=== PATIENT | female | born 1970 | race Hispanic/Latino ===

== ENCOUNTER 2019-02-24 11:00 | Emergency (ER) | payer SELFPAY | END 2019-02-24 11:41 | disposition home or self-care (01) | LOC: ERS 11:00 | DX: J32.9 Chronic sinusitis, unspecified (principal); F32.9 Major depressive disorder, single episode, unspecified | CPT/HCPCS: 99283 ==

== ENCOUNTER 2019-12-03 15:10 | Emergency (ER) | payer SELFPAY ==
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
[2019-12-03] MEDS ORDERED: Ketorolac Tromethamine 30 MG/ML VIAL ONE (17:03)
== END 2019-12-03 18:04 | disposition home or self-care (01) ==
LOC: ERS 15:10
DX: S60.212A Contusion of left wrist, initial encounter (principal); S80.12XA Contusion of left lower leg, initial encounter; S80.11XA Contusion of right lower leg, initial encounter; E04.1 Nontoxic single thyroid nodule; F32.9 Major depressive disorder, single episode, unspecified; V89.2XXA Person injured in unspecified motor-vehicle accident, traffic, initial encounter
CPT/HCPCS: 70450; 72125; 72131; 96374; J1885

== ENCOUNTER 2020-08-05 08:18 | Inpatient (IN) | payer OTHER, SELFPAY ==
[2020-08-05 08:54] LABS: #Basophils 0.1 thou/uL (0.0-0.2); #Eosinphils 0.1 thou/uL (0.0-0.7); #Lymphocytes 2.3 thou/uL (1.20-3.40); #Neutrophils 13.8 thou/uL (1.40-6.50); %Basophils 0.5 % (0.0-1.0); %Eosinophils 0.8 % (0.0-10.0); %Lymphocytes 13.3 % (21.0-51.0); %Monocytes 5.7 % (0.0-10.0); %Neutrophils 79.8 % (42.0-75.0); Hemoglobin 14.6 g/dL (12.0-16.0); Mean Corpuscular HGB CONC 33.5 g/dL (32.0-36.0); Mean Corpuscular Volume 95.7 fL (78.0-98.0); Platelet Count 268 thou/uL (130-400); RBC Distribution Width 11.7 % (11.5-14.5); Red Blood Cell (RBC) Count 4.55 mill/uL (4.20-5.40); White Blood Cell (WBC) Count 17.2 thou/uL (4.8-10.8)
[2020-08-05] MEDS ORDERED: Ondansetron PF 4 MG/2 ML Vial ONE (08:59)
[2020-08-05] MEDS ORDERED: Morphine 4 MG/ML VIAL ONE ×2 (08:59→09:22)
[2020-08-05 09:00] LABS: Pregnancy Test - Urine (BHCG) Negative (Negative); Pregu Control Background? CLEAR/WHITE (CLR/WHITE); Pregu Control Bar Appear? YES (CONTROL BAR); Specific Gravity 1.022 (1.002-1.036)
--- NOTE | 2020-08-05 09:00 | RAD ---
CHEST 1 VIEW: Date: 08/05/2020 HISTORY: Cough. COMPARISON: 07/29/2016. FINDINGS: Heart size is normal. The lungs are clear. No confluent pneumonia, overt edema, or pleural effusion. IMPRESSION: No significant acute intrathoracic disease. POS: AH
[2020-08-05 09:04] LABS: Bilirubin Negative (Negative); Blood, Urine 2+ (Negative); Clarity Turbid (Clear); Glucose, Urine (Dipstick) Normal (Negative); Ketone, Urine Negative (Negative); Leukocyte Negative Leu/uL (Negative); Nitrite Negative (Negative); Protein, Urine (Dipstick) 50 mg/dL (Neg-Trace); RBC/HPF 21-50 HPF (0-3); Specific Gravity, Urine 1.024 (1.002-1.036); Urobilinogen Normal mg/dL (Less than 2)
[2020-08-05 09:05] LABS: Bacteria/HPF 1+ HPF (None Seen)
[2020-08-05 09:20] LABS: ALT (SGPT) 21 U/L (8-55); AST (SGOT) 15 U/L (5-34); Alkaline Phosphatase 99 U/L (40-110); Anion Gap 14 mmol/L (10-20); BUN (Urea Nitrogen) 9 mg/dL (7.0-18.7); Bilirubin, Total 1.4 mg/dL (0.2-1.2); Calc. Creatinine Clearance 0 mL/min (70-130); Carbon Dioxide 27 mmol/L (22-29); Chloride 100 mmol/L (98-107); Globulin 3.3 g/dL (2.4-3.5); Glucose 97 mg/dL (70-105); Lipase 5 U/L (8-78); Potassium 3.2 mmol/L (3.5-5.1); Protein, Total 7.3 g/dL (6.0-8.3); Sodium 138 mmol/L (136-145)
[2020-08-05] MEDS ORDERED: Piperacillin/Tazobactam 3.375 GM VIAL ONE (09:22)
--- NOTE | 2020-08-05 09:29 | CT ---
CT OF THE ABDOMEN AND PELVIS WITH IV CONTRAST INDICATION: Left lower quadrant abdominal pain COMPARISON: MRI of the abdomen with and without contrast dated March 23, 2009 and August 26, 2009 FINDINGS: ABDOMEN: Lung bases: Clear Liver: There is a peripheral nodular discontinuous enhancing lesion within the right hepatic dome maria l suring 3.5 cm stable to the prior MR examination in 2010 and likely reflective of a benign hemangioma. Additional enhancing lesion within the central right hepatic lobe is not well seen. Gallbladder: Normal appearing. Pancreas: Normal. Adrenal glands: Normal. Spleen: Normal. Kidneys and ureters: Normal. No hydronephrosis. Vasculature: Normal. Lymph nodes:No lymphadenopathy. Free fluid in abdomen:There is mild fluid within the left paracolonic gutter. PELVIS: Small and large bowel: There is wall thickening with pericolonic inflammatory stranding involving the descending colon. There are scattered colonic diverticula. Appendix:Normal Bladder: Normal. Rectal and perirectal soft tissues:Normal. Reproductive structures: Normal. Free fluid in pelvis: No free fluid is evident. Lymphadenopathy pelvis: No lymphadenopathy is evident. Osseous structures: No acute osseous abnormality. No destructive osteolytic or osteoblastic lesion i s identified. There is scattered degenerative and osteoarthritic changes. Soft tissues:Normal. IMPRESSION: 1. Noncomplicated descending colonic diverticulitis. 2. Benign lesion of the right hepatic dome is stable in size. This is likely reflective of a hemangio ma. Additional smaller suspected benign lesion the central right hepatic lobe is not well seen on the current phase of contrast enhancement. This was also suspect is been benign.
--- NOTE | 2020-08-05 12:01 | HP ---
CHIEF COMPLAINT: Abdominal pain. HISTORY OF PRESENT ILLNESS: The patient is a 49-year-old female with no significant past medical history other than a heart murmur, who presented to the hospital with severe left lower quadrant abdominal pain that started last night and has been persistent since then. The patient complains of some nausea and constipation, but denies vomiting. She also endorsed subjective fevers and chills. REVIEW OF SYSTEMS: Negative except as noted in HPI. PAST MEDICAL HISTORY: As noted above. SURGICAL HISTORY: Includes tubal ligation and fallopian tube removal on the left side. SOCIAL HISTORY: The patient drinks alcohol socially. She denies smoking or illicit drug use. FAMILY HISTORY: No significant family history. PHYSICAL EXAMINATION: GENERAL: The patient is alert and oriented x3. HEENT: Head is normocephalic and atraumatic. Extraocular muscles are intact. NECK: Supple. CHEST: Clear to auscultation bilaterally. ABDOMEN: Soft and tender in the lower left quadrant. NEUROLOGIC: Nonfocal. ASSESSMENT: 1. Sepsis. 2. Diverticulitis of the left side of the colon per CT. 3. Hypokalemia. 4. Abdominal pain. PLAN: The patient will be admitted to the hospital. Start IV normal saline at 150 mL/h. Start Zosyn to cover for Gram-negative and anaerobes. Morphine for pain control. Clear liquid diet. Job ID: [id number] [facility]
[2020-08-05] MEDS ORDERED: Iopamidol-370 76% 500 ML 1 ML ONE (13:07)
[2020-08-05] MEDS: Piperacillin/Tazobactam 3.375 GM in Sodium Chloride 0.9% 100 ML IVPB SCH ×2 (13:20→17:01)
[2020-08-05 13:35] VITALS: BMI 32.9
[2020-08-05] MEDS: Sodium Chloride 0.9% 1,000 ML IV SCH ×2 (14:14→19:21)
[2020-08-05] MEDS: HYDROcodone/Acetaminophen 7.5/325 mg Tablet PO PRN ×2 (15:58→21:23)
[2020-08-05] MEDS: Morphine 4 MG/ML VIAL SLOW IVP PRN (19:20)
[2020-08-05] MEDS: Melatonin 3 MG TAB PO SCH (20:37)
[2020-08-06] MEDS: Piperacillin/Tazobactam 3.375 GM in Sodium Chloride 0.9% 100 ML IVPB SCH ×5 (00:13→23:17)
[2020-08-06] MEDS: Morphine 4 MG/ML VIAL SLOW IVP PRN (00:19)
[2020-08-06] MEDS: Sodium Chloride 0.9% 1,000 ML IV SCH ×4 (02:18→21:11)
[2020-08-06] MEDS: Ondansetron PF 4 MG/2 ML Vial IVP PRN ×2 (02:38→22:41)
[2020-08-06] MEDS: HYDROcodone/Acetaminophen 7.5/325 mg Tablet PO PRN ×2 (02:41→07:49)
[2020-08-06 03:02] LABS: SARS-CoV-2 MS2 Positive; SARS-CoV-2 N Gene Negative; SARS-CoV-2 S Gene Negative; SARS-CoV-2 by NAA Not Detected (NotDetected); SARS-CoV-2 orf1ab Negative
[2020-08-06 06:02] LABS: #Basophils 0.1 thou/uL (0.0-0.2); #Eosinphils 0.1 thou/uL (0.0-0.7); #Lymphocytes 2.4 thou/uL (1.20-3.40); #Monocytes 0.9 thou/uL (0.11-0.59); #Neutrophils 13.2 thou/uL (1.40-6.50); %Basophils 0.4 % (0.0-1.0); %Eosinophils 0.4 % (0.0-10.0); %Lymphocytes 14.3 % (21.0-51.0); %Monocytes 5.2 % (0.0-10.0); %Neutrophils 79.7 % (42.0-75.0); Hemoglobin 11.7 g/dL (12.0-16.0); Mean Corpuscular HGB CONC 32.5 g/dL (32.0-36.0); Mean Corpuscular Hemoglobin 31.7 pg (27.0-31.0); Mean Corpuscular Volume 97.5 fL (78.0-98.0); Platelet Count 227 thou/uL (130-400); RBC Distribution Width 11.7 % (11.5-14.5); White Blood Cell (WBC) Count 16.6 thou/uL (4.8-10.8)
[2020-08-06 06:21] LABS: Anion Gap 12 mmol/L (10-20); BUN (Urea Nitrogen) 6 mg/dL (7.0-18.7); Calc. Creatinine Clearance 143 mL/min (70-130); Calcium 7.7 mg/dL (7.8-10.44); Carbon Dioxide 23 mmol/L (22-29); Chloride 101 mmol/L (98-107); Glucose 112 mg/dL (70-105); Potassium 3.6 mmol/L (3.5-5.1); Sodium 132 mmol/L (136-145)
[2020-08-06 06:24] LABS: Phosphorus 1.9 mg/dL (2.3-4.7)
[2020-08-06] MEDS ORDERED: Meclizine HCl 25 MG TAB PO SCH ×2 (06:30)
[2020-08-06] MEDS: Enoxaparin Sodium 40 MG/0.4 ML SYRINGE SC SCH (07:47)
[2020-08-06] MEDS: Saccharomyces boulardii 250 MG CAP PO SCH (07:48)
[2020-08-06] MEDS: Acetaminophen 325 MG TAB PO PRN ×2 (08:57→17:08)
[2020-08-06] MEDS ORDERED: FLU VACC QS2020-21(6MOS UP)/PF 60 MCG/0.5 ML SYRINGE IM ONE (09:00)
[2020-08-06] MEDS: traMADol HCl 50 MG TAB PO PRN ×4 (10:01→22:40)
[2020-08-06] MEDS: K-Phos Neutral 250 MG TAB PO SCH ×2 (11:41→17:08)
[2020-08-06] MEDS: Morphine 2 MG/ML VIAL SLOW IVP PRN ×3 (11:41→19:55)
--- NOTE | 2020-08-06 19:18 | PDOC.HOSPP ---
- Subjective Encounter Date: 08/06/20 Encounter Time: 14:00 Subjective: Patient seen and examined for diverticulitis. Abdominal pain improving. Had some nausea earlier. No vomiting or fever reported. - Objective Vital Signs & Weight: Vital Signs (12 hours) Temp Pulse Resp BP Pulse Ox 08/06/20 17:08 99.1 F 08/06/20 07:50 98 08/06/20 07:43 98.3 F 74 18 94/65 98 Weight Weight 180 lb I&O: 08/05/20 08/06/20 08/07/20 06:59 06:59 06:59 Intake Total 960 Balance 960 Result Diagrams: 08/06/20 05:50 08/06/20 05:50 Additional Labs: Abnormal Lab Results - Last 48 hrs 08/05/20 08:28: Potassium 3.2 L, Total Bilirubin 1.4 H, Lipase 5 L 08/05/20 08:28: WBC 17.2 H, MCH 32.0 H, MPV 7.0 L, Neutrophils % 79.8 H, Ly mphocytes % 13.3 L, Neutrophils # 13.8 H, Monocytes # 1.0 H 08/05/20 08:28: Urine Clarity Turbid A, Urine Protein 50 A, Urine Blood 2+ A, Urine RBC 21-50 A, Urine WBC 4-6 A, Ur Squamous Epith Cells 4-6 A, Urine Bacteria 1+ A 08/06/20 05:50: Sodium 132 L, BUN 6 L, Calcium 7.7 L 08/06/20 05:50: WBC 16.6 H, RBC 3.70 L, Hgb 11.7 L, MCH 31.7 H, MPV 7.0 L, Neutrophils % 79.7 H, Lymphocytes % 14.3 L, Neutrophils # 13.2 H, Monocytes # 0.9 H 08/06/20 05:50: Phosphorus 1.9 L Microbiology - Entire Visit 08/05/20 09:10 Venous blood - Right Arm Blood Culture - Preliminary Specimen has been received and culture in progress. No Growth to date. 08/05/20 08:40 Venous blood - Right Arm Blood Culture - Preliminary Specimen has been received and culture in progress. No Growth to date. 08/05/20 08:28 Urine voided Urine Culture - Preliminary Radiology Reviewed by me: Yes (CT abdomenacute diverticulitis) Hospitalist ROS - Review of Systems Respiratory: denies: cough, dry, shortness of breath, hemoptysis, SOB with excertion, pleuritic pain, sputum, wheezing, other Cardiovascular: denies: chest pain, palpitations, orthopnea, paroxysmal noc. dyspnea, edema, light headedness, other - Medication Medications: Active Medications Generic Name Dose Route Start Last Admin Trade Name Freq PRN Reason Stop Dose Admin Acetaminophen 650 mg 08/05/20 16:57 08/06/20 17:08 Acetaminophen 325 Mg Tab PO 650 mg Q6H PRN Administration Fever > 101 Enoxaparin Sodium 40 mg 08/06/20 09:00 08/06/20 07:47 Enoxaparin Sodium 40 Mg/0.4 Ml Syringe SC 40 mg 0900 ROSAURA Administration Piperacillin Sod/Tazobactam 100 mls @ 200 mls/hr 08/05/20 12:00 08/06/20 17:03 Sod 3.375 gm/ Sodium Chloride IVPB 100 mls Q6HR ROSAURA Administration Sodium Chloride 1,000 mls @ 150 mls/hr 08/05/20 11:45 08/06/20 14:27 Normal Saline 0.9% IV 1,000 mls .Q6H40M ROSAURA Administration Melatonin 6 mg 08/05/20 21:00 08/05/20 20:37 Melatonin 3 Mg Tab PO 6 mg HS ROSAURA Administration Morphine Sulfate 4 mg 08/05/20 11:27 08/06/20 00:19 Morphine 4 Mg/Ml Vial SLOW IVP 4 mg Q4H PRN Administration Severe Pain (7-10) Morphine Sulfate 2 mg 08/06/20 09:47 08/06/20 15:24 Morphine 2 Mg/Ml Vial SLOW IVP 08/07/20 09:48 2 mg Q4H PRN Administration Moderate Pain (4-6) Ondansetron HCl 4 mg 08/05/20 11:26 08/06/20 02:38 Ondansetron Pf 4 Mg/2 Ml Vial IVP 4 mg Q6H PRN Administration Nausea/Vomiting Phosphorus 250 mg 08/06/20 12:00 08/06/20 17:08 K-Phos Neutral 250 Mg Tab PO 250 mg TID-WM ROSAURA Administration Saccharomyces Boulardii 250 mg 08/06/20 09:00 12/25/20 07:48 Saccharomyces Boulardii 250 Mg Cap PO 250 mg DAILY ROSAURA Administration Sodium Chloride 10 ml 08/06/20 09:00 08/06/20 07:47 Flush - Normal Saline 10 Ml Syringe IVF Not Given Q12HR ROSAURA Tramadol HCl 50 mg 08/06/20 09:47 08/06/20 18:42 Tramadol Hcl 50 Mg Tab PO 50 mg Q4H PRN Administration Moderate Pain (4-6) - Exam General Appearance: ill appearing Neck: supple, symmetric, no JVD Heart: RRR, no gallops, no rubs, normal peripheral pulses Respiratory: no wheezes, no rales, no ronchi, normal chest expansion Gastrointestinal: soft, non-distended, no guarding, no rigidity, tender to palpation (Left lower quadrant) Extremities: no cyanosis, no clubbing, no edema Musculoskeletal: generalized weakness Psychiatric: normal affect, A&O x 3 Hosp A/P - Plan DVT proph w/SCDs Sepsis due to acute diverticulitisPOA Abdominal pain due to above Obesity with a BMI 32.9 Hyponatremia/hypokalemia/hypophosphatemia Abnormal LFTs probably due to sepsis Plan: Continue IV Zosyn. Continue IV fluids. Replace electrolytes. Add probiotics. Pain control. Recheck LFTs in a.m. walking program. Continue other medications as above. DC in 1 to 2 days if stable. Consult dietitian for dietary education
[2020-08-06] MEDS: Melatonin 3 MG TAB PO SCH (21:09)
[2020-08-07] MEDS: Morphine 4 MG/ML VIAL SLOW IVP PRN ×4 (01:16→19:27)
[2020-08-07] MEDS: traMADol HCl 50 MG TAB PO PRN ×5 (03:40→21:37)
[2020-08-07] MEDS: Sodium Chloride 0.9% 1,000 ML IV SCH ×3 (03:41→16:46)
[2020-08-07] MEDS: Morphine 2 MG/ML VIAL SLOW IVP PRN (05:42)
[2020-08-07] MEDS: Piperacillin/Tazobactam 3.375 GM in Sodium Chloride 0.9% 100 ML IVPB SCH ×3 (05:43→16:46)
[2020-08-07 07:30] LABS: #Basophils 0.1 thou/uL (0.0-0.2); #Eosinphils 0.2 thou/uL (0.0-0.7); #Lymphocytes 2.5 thou/uL (1.20-3.40); #Monocytes 0.5 thou/uL (0.11-0.59); #Neutrophils 6.9 thou/uL (1.40-6.50); %Basophils 0.7 % (0.0-1.0); %Eosinophils 1.9 % (0.0-10.0); %Lymphocytes 24.4 % (21.0-51.0); %Monocytes 5.3 % (0.0-10.0); %Neutrophils 67.8 % (42.0-75.0); Mean Corpuscular HGB CONC 33.1 g/dL (32.0-36.0); Mean Corpuscular Hemoglobin 32.5 pg (27.0-31.0); Mean Corpuscular Volume 98.1 fL (78.0-98.0); Mean Platelet Volume 8.1 fL (7.4-10.4); Platelet Count 220 thou/uL (130-400); RBC Distribution Width 11.5 % (11.5-14.5); White Blood Cell (WBC) Count 10.1 thou/uL (4.8-10.8)
[2020-08-07 07:31] LABS: ALT (SGPT) 20 U/L (8-55); AST (SGOT) 17 U/L (5-34); Albumin 3.1 g/dL (3.5-5.0); Alkaline Phosphatase 89 U/L (40-110); Anion Gap 12 mmol/L (10-20); BUN (Urea Nitrogen) 6 mg/dL (7.0-18.7); Bilirubin, Total 0.8 mg/dL (0.2-1.2); Calc. Creatinine Clearance 153 mL/min (70-130); Calcium 7.6 mg/dL (7.8-10.44); Carbon Dioxide 25 mmol/L (22-29); Chloride 104 mmol/L (98-107); Globulin 2.9 g/dL (2.4-3.5); Glucose 79 mg/dL (70-105); Magnesium 1.9 mg/dL (1.6-2.6); Phosphorus 2.1 mg/dL (2.3-4.7); Potassium 3.2 mmol/L (3.5-5.1); Sodium 138 mmol/L (136-145)
[2020-08-07] MEDS: Saccharomyces boulardii 250 MG CAP PO SCH (08:36)
[2020-08-07] MEDS: Enoxaparin Sodium 40 MG/0.4 ML SYRINGE SC SCH (08:36)
[2020-08-07] MEDS: K-Phos Neutral 250 MG TAB PO SCH ×3 (08:36→16:50)
[2020-08-07] MEDS: Acetaminophen 325 MG TAB PO PRN ×2 (09:15→19:26)
[2020-08-07] MEDS: Ondansetron PF 4 MG/2 ML Vial IVP PRN ×3 (09:15→20:08)
--- NOTE | 2020-08-07 17:29 | PDOC.HOSPP ---
- Subjective Encounter Date: 08/07/20 Encounter Time: 08:30 Subjective: Patient seen for follow-up regarding sepsis. She denies chest pain or shortness of breath. Complains of left-sided abdominal pain. - Objective Vital Signs & Weight: Vital Signs (12 hours) Temp Pulse Resp BP BP BP Pulse Ox 08/07/20 16:07 98.2 F 67 18 111/61 94 L 08/07/20 11:45 97.9 F 67 18 106/73 94 L 08/07/20 10:11 98.7 F 08/07/20 07:32 99.3 F 73 16 97/66 08/07/20 05:48 98.3 F 75 18 123/73 08/07/20 05:39 97.6 F 75 19 117/81 Weight Weight 180 lb I&O: 08/06/20 08/07/20 08/08/20 06:59 06:59 06:59 Intake Total 960 Balance 960 Result Diagrams: 08/07/20 06:15 08/07/20 06:15 Additional Labs: Labs and MAR reviewed by [place] Hospitalist ROS - Review of Systems Cardiovascular: denies: chest pain, palpitations, orthopnea, paroxysmal noc. dyspnea, edema, light headedness Gastrointestinal: reports: abdominal pain. denies: nausea, vomiting, diarrhea, constipation, melena, hematochezia - Medication Medications: Active Medications Generic Name Dose Route Start Last Admin Trade Name Freq PRN Reason Stop Dose Admin Acetaminophen 650 mg 08/05/20 16:57 08/07/20 09:15 Acetaminophen 325 Mg Tab PO 650 mg Q6H PRN Administration Fever > 101 Enoxaparin Sodium 40 mg 08/06/20 09:00 08/07/20 08:36 Enoxaparin Sodium 40 Mg/0.4 Ml Syringe SC 40 mg 0900 ROSAURA Administration Piperacillin Sod/Tazobactam 100 mls @ 200 mls/hr 08/05/20 12:00 08/07/20 16:46 Sod 3.375 gm/ Sodium Chloride IVPB 100 mls Q6HR ROSAURA Administration Sodium Chloride 1,000 mls @ 150 mls/hr 08/05/20 11:45 08/07/20 16:46 Normal Saline 0.9% IV 1,000 mls .Q6H40M ROSAURA Administration Melatonin 6 mg 08/05/20 21:00 08/06/20 21:09 Melatonin 3 Mg Tab PO Not Given HS ROSAURA Morphine Sulfate 4 mg 08/05/20 11:27 08/07/20 14:06 Morphine 4 Mg/Ml Vial SLOW IVP 4 mg Q4H PRN Administration Severe Pain (7-10) Ondansetron HCl 4 mg 08/05/20 11:26 08/07/20 14:06 Ondansetron Pf 4 Mg/2 Ml Vial IVP 4 mg Q6H PRN Administration Nausea/Vomiting Phosphorus 250 mg 08/06/20 12:00 08/07/20 16:50 K-Phos Neutral 250 Mg Tab PO 250 mg TID-WM ROSAURA Administration Saccharomyces Boulardii 250 mg 08/06/20 09:00 08/07/20 08:36 Saccharomyces Boulardii 250 Mg Cap PO 250 mg DAILY ROSAURA Administration Sodium Chloride 10 ml 08/06/20 09:00 08/07/20 17:26 Flush - Normal Saline 10 Ml Syringe IVF Not Given Q12HR ROSAURA Tramadol HCl 50 mg 08/06/20 09:47 08/07/20 16:45 Tramadol Hcl 50 Mg Tab PO 50 mg Q4H PRN Administration Moderate Pain (4-6) - Exam General - other findings: Obese Eye: anicteric sclera ENT: normocephalic atraumatic Neck: supple Heart: RRR Respiratory: CTAB Gastrointestinal: soft, normal bowel sounds, no guarding, no rigidity, tender to palpation Skin: no rashes Psychiatric: normal affect, normal behavior Hosp A/P - Plan Assessment: 1. Sepsis 2. acute diverticulitis 3. Hyponatremia/hypokalemia/hypophosphatemia 4. Abnormal LFTs probably due to sepsis - resolved Plan: Continue IV Zosyn. Continue IV fluids. Replace electrolytes. Continue probiotics. Pain control. LFTs have normalized.
[2020-08-07] MEDS: Melatonin 3 MG TAB PO SCH (20:01)
[2020-08-08] MEDS: Piperacillin/Tazobactam 3.375 GM in Sodium Chloride 0.9% 100 ML IVPB SCH ×2 (00:17→05:20)
[2020-08-08] MEDS: Sodium Chloride 0.9% 1,000 ML IV SCH ×4 (00:17→20:18)
[2020-08-08] MEDS: Morphine 4 MG/ML VIAL SLOW IVP PRN ×5 (01:45→22:25)
[2020-08-08] MEDS: Ondansetron PF 4 MG/2 ML Vial IVP PRN ×3 (01:46→19:48)
[2020-08-08 05:46] LABS: #Basophils 0.1 thou/uL (0.0-0.2); #Eosinphils 0.3 thou/uL (0.0-0.7); #Lymphocytes 2.1 thou/uL (1.20-3.40); #Monocytes 0.5 thou/uL (0.11-0.59); #Neutrophils 5.4 thou/uL (1.40-6.50); %Basophils 0.7 % (0.0-1.0); %Eosinophils 3.7 % (0.0-10.0); %Lymphocytes 25.6 % (21.0-51.0); %Monocytes 5.8 % (0.0-10.0); %Neutrophils 64.2 % (42.0-75.0); Hemoglobin 11.1 g/dL (12.0-16.0); Mean Corpuscular HGB CONC 31.5 g/dL (32.0-36.0); Mean Corpuscular Hemoglobin 30.9 pg (27.0-31.0); Mean Corpuscular Volume 98.2 fL (78.0-98.0); Mean Platelet Volume 7.2 fL (7.4-10.4); Platelet Count 288 thou/uL (130-400); RBC Distribution Width 11.5 % (11.5-14.5); Red Blood Cell (RBC) Count 3.59 mill/uL (4.20-5.40); White Blood Cell (WBC) Count 8.4 thou/uL (4.8-10.8)
[2020-08-08] MEDS: Saccharomyces boulardii 250 MG CAP PO SCH (08:09)
[2020-08-08] MEDS: K-Phos Neutral 250 MG TAB PO SCH ×3 (08:09→17:56)
[2020-08-08] MEDS: Enoxaparin Sodium 40 MG/0.4 ML SYRINGE SC SCH (08:09)
[2020-08-08] MEDS ORDERED: Iopamidol 370 76% 100 ML VIAL ONE (09:41)
[2020-08-08] MEDS ORDERED: metroNIDAZOLE 250 MG TAB PO SCH (09:45)
[2020-08-08] MEDS ORDERED: Ciprofloxacin 500 MG TAB PO SCH (09:45)
[2020-08-08 10:24] LABS: Anion Gap 11 mmol/L (10-20); BUN (Urea Nitrogen) Less than 4 mg/dL (7.0-18.7); Calc. Creatinine Clearance 153 mL/min (70-130); Calcium 7.8 mg/dL (7.8-10.44); Carbon Dioxide 29 mmol/L (22-29); Chloride 102 mmol/L (98-107); Glucose 146 mg/dL (70-105); Potassium 3.1 mmol/L (3.5-5.1); Sodium 139 mmol/L (136-145)
[2020-08-08] MEDS: traMADol HCl 50 MG TAB PO PRN ×3 (11:06→20:17)
[2020-08-08] MEDS ORDERED: metroNIDAZOLE 500 MG TAB PO SCH ×2 (15:00→19:00)
--- NOTE | 2020-08-08 15:30 | PDOC.HOSPP ---
- Subjective Encounter Date: 08/08/20 Encounter Time: 10:30 Subjective: Patient seen for follow-up regarding sepsis. She reports abdominal pain is better. Nausea is better. - Objective Vital Signs & Weight: Vital Signs (12 hours) Temp Pulse Resp BP Pulse Ox 08/08/20 07:29 98.6 F 79 16 125/83 96 08/08/20 05:00 98.3 F 70 18 117/79 93 L Weight Weight 180 lb I&O: 08/07/20 08/08/20 08/09/20 06:59 06:59 06:59 Intake Total 960 2180 Balance 960 2180 Result Diagrams: 08/08/20 05:32 08/08/20 09:43 Additional Labs: I reviewed patient's labs and MAR Hospitalist ROS - Review of Systems Cardiovascular: denies: chest pain, palpitations, orthopnea, paroxysmal noc. dyspnea, edema, light headedness Gastrointestinal: reports: abdominal pain. denies: nausea, vomiting, diarrhea, constipation, melena, hematochezia - Medication Medications: Active Medications Generic Name Dose Route Start Last Admin Trade Name Freq PRN Reason Stop Dose Admin Acetaminophen 650 mg 08/05/20 16:57 08/07/20 19:26 Acetaminophen 325 Mg Tab PO 650 mg Q6H PRN Administration Fever > 101 Enoxaparin Sodium 40 mg 08/06/20 09:00 08/08/20 08:09 Enoxaparin Sodium 40 Mg/0.4 Ml Syringe SC 40 mg 0900 ROSAURA Administration Sodium Chloride 1,000 mls @ 150 mls/hr 08/05/20 11:45 08/08/20 13:18 Normal Saline 0.9% IV 1,000 mls .Q6H40M ROSAURA Administration Melatonin 6 mg 08/05/20 21:00 08/07/20 20:01 Melatonin 3 Mg Tab PO Not Given HS ROSAURA Morphine Sulfate 4 mg 08/05/20 11:27 08/08/20 12:07 Morphine 4 Mg/Ml Vial SLOW IVP 4 mg Q4H PRN Administration Severe Pain (7-10) Ondansetron HCl 4 mg 08/05/20 11:26 08/08/20 08:08 Ondansetron Pf 4 Mg/2 Ml Vial IVP 4 mg Q6H PRN Administration Nausea/Vomiting Phosphorus 250 mg 08/06/20 12:00 08/08/20 13:02 K-Phos Neutral 250 Mg Tab PO 250 mg TID-WM ROSAURA Administration Saccharomyces Boulardii 250 mg 08/06/20 09:00 08/08/20 08:09 Saccharomyces Boulardii 250 Mg Cap PO 250 mg DAILY ROSAURA Administration Sodium Chloride 10 ml 08/06/20 09:00 08/08/20 08:09 Flush - Normal Saline 10 Ml Syringe IVF 10 ml Q12HR ROSAURA Administration Tramadol HCl 50 mg 08/06/20 09:47 08/08/20 11:06 Tramadol Hcl 50 Mg Tab PO 50 mg Q4H PRN Administration Moderate Pain (4-6) - Exam General Appearance: awake alert General - other findings: Obesity ENT: moist mucosa Neck: supple Heart: RRR Respiratory: CTAB Gastrointestinal: soft, non-tender Skin: no rashes Psychiatric: normal affect, normal behavior Hosp A/P - Plan Assessment: 1. Sepsis 2. acute diverticulitis 3. Hyponatremia/hypokalemia/hypophosphatemia 4. Abnormal LFTs probably due to sepsis - resolved Plan: Discontinue Zosyn, start oral ciprofloxacin and oral metronidazole. Continue IV fluids. Change diet to full fluid, advance as tolerated. Replace potassium. Continue Florastor. Pain control.
[2020-08-08] MEDS: Potassium Chloride 20 MEQ TAB PO SCH ×2 (15:36→20:16)
--- NOTE | 2020-08-08 18:19 | RAD ---
RADIOGRAPH CHEST 1 VIEW: DATE: 08/08/2020 TIME: 6:09 PM HISTORY: 49-year-old female with "chest heaviness" COMPARISON: 08/05/2020 FINDINGS: New finding of thickening of the right lateral basilar pleural stripe, which may represent a small pl eural effusion. Another new finding of mild haziness over right lung base, which could be due to pleural effusion. No consolidation or cardiomegaly. No pneumothorax. Upper lung zones are bilaterally clear. IMPRESSION: Possibility of small right pleural effusion. A lateral view would be useful.
[2020-08-08] MEDS: metroNIDAZOLE 500 MG TAB PO SCH (20:16)
[2020-08-08] MEDS: Acetaminophen 325 MG TAB PO PRN (20:17)
[2020-08-08] MEDS: Ciprofloxacin 500 MG TAB PO SCH (20:17)
[2020-08-08] MEDS: Melatonin 3 MG TAB PO SCH (20:18)
--- NOTE | 2020-08-08 21:11 | CT ---
CT ANGIOGRAM THORAX WITH CONTRAST: (CTA pulmonary angiogram) DATE: 08/08/2020 HISTORY: 49-year-old female with sudden onset dyspnea. Elevated d-dimer. TECHNIQUE: IV injection of iodinated contrast. Scan acquisition timing attempted to coincide with iodinated contrast bolus reaching maximal density in pulmonary arteries. 3-D MIP reconstructions. FINDINGS: Right pleural effusion occupies approximately 20% volume of right hemithoracic cavity. Small left pleural effusion, approximately 5% volume. No pneumothorax. No thoracic aortic aneurysm or dissection. No pericardial effusion. Good opacification of pulmonary arteries. No pulmonary thromboembolism. Mild diffuse faint groundglass changes throughout the lungs, in a pattern that is likely to represent pulmonary interstitial edema rather than COVID-19 pneumonia. Tiny pericardial effusion. IMPRESSION: 1) no pulmonary thromboembolism. 2) bilateral small pleural effusions, right greater than left. 3) diffuse mild groundglass densities that probably represent pulmonary interstitial edema.
[2020-08-09] MEDS: Morphine 4 MG/ML VIAL SLOW IVP PRN (04:52)
[2020-08-09] MEDS: metroNIDAZOLE 500 MG TAB PO SCH ×2 (04:55→11:35)
[2020-08-09] MEDS: Ciprofloxacin 500 MG TAB PO SCH (04:55)
[2020-08-09 06:56] LABS: #Basophils 0.1 thou/uL (0.0-0.2); #Eosinphils 0.4 thou/uL (0.0-0.7); #Monocytes 0.6 thou/uL (0.11-0.59); #Neutrophils 3.8 thou/uL (1.40-6.50); %Basophils 0.8 % (0.0-1.0); %Lymphocytes 29.1 % (21.0-51.0); %Monocytes 8.9 % (0.0-10.0); %Neutrophils 55.2 % (42.0-75.0); Hemoglobin 11.2 g/dL (12.0-16.0); Mean Corpuscular HGB CONC 32.8 g/dL (32.0-36.0); Mean Corpuscular Hemoglobin 31.9 pg (27.0-31.0); Mean Corpuscular Volume 97.4 fL (78.0-98.0); Mean Platelet Volume 7.3 fL (7.4-10.4); Platelet Count 293 thou/uL (130-400); RBC Distribution Width 11.6 % (11.5-14.5); Red Blood Cell (RBC) Count 3.51 mill/uL (4.20-5.40); White Blood Cell (WBC) Count 6.8 thou/uL (4.8-10.8)
[2020-08-09 07:18] LABS: Anion Gap 14 mmol/L (10-20); BUN (Urea Nitrogen) Less than 4 mg/dL (7.0-18.7); Calc. Creatinine Clearance 156 mL/min (70-130); Calcium 8.2 mg/dL (7.8-10.44); Carbon Dioxide 23 mmol/L (22-29); Chloride 106 mmol/L (98-107); Glucose 80 mg/dL (70-105); Potassium 4.1 mmol/L (3.5-5.1); Sodium 139 mmol/L (136-145)
[2020-08-09] MEDS: traMADol HCl 50 MG TAB PO PRN (07:54)
[2020-08-09] MEDS: Ondansetron PF 4 MG/2 ML Vial IVP PRN (07:55)
[2020-08-09] MEDS: Enoxaparin Sodium 40 MG/0.4 ML SYRINGE SC SCH (07:55)
[2020-08-09] MEDS: K-Phos Neutral 250 MG TAB PO SCH ×2 (07:55→11:35)
[2020-08-09] MEDS: Saccharomyces boulardii 250 MG CAP PO SCH (07:55)
[2020-08-09] MEDS ORDERED: Furosemide 40 MG/4 ML VIAL SLOW IVP SCH (08:15)
--- NOTE | 2020-08-09 10:38 | PDOC.DS.DS ---
Provider - Provider Date of Admission: 08/05/20 13:14 Date of Discharge: 08/09/20 Admitting Provider: Kamla Poole MD Primary Care Physician: NO PCP PROVIDER Course - Hospital Course Hospital Course: Discharge diagnosis: 1. Diverticulitis 2. Sepsis 3. Hypokalemia 4. Abdominal pain 5. Hyponatremia 6. Hypophosphatemia 7. COVID-19 PCR test negative Hospital course: Patient is a pleasant 49-year-old lady who was admitted to the hospital on August 05, 2020 for abdominal pain secondary to acute diverticulitis. She improved with antibiotics. She was stepdown to oral antibiotics and is being discharged home in a stable condition. On the day prior to discharge, she had shortness of breath. EKG was unremarkable, troponin was normal. D-dimer was elevated and CT scan of the chest did not show any evidence of pulmonary thromboembolism. She had bilateral small pleural effusions, right greater than left and diffuse groundglass densities that probably represent pulmonary interstitial edema. Many thanks for allowing me to participate in your patient's care. Please feel free to contact me with any questions or concerns. Discharge destination: Home Total amount of time spent coordinating this discharge: 32 minutes - Labs Lab Results: 08/09/20 06:14 08/09/20 06:14 Abnormal Lab Results - Last 48 hrs 08/08/20 05:32: RBC 3.59 L, Hgb 11.1 L, Hct 35.2 L, MCV 98.2 H, MCHC 31.5 L, MPV 7.2 L 08/08/20 09:43: Potassium 3.1 L, BUN Less than 4 L, Creatinine 0.58 L 08/08/20 18:20: D-Dimer 5.31 H 08/09/20 06:14: RBC 3.51 L, Hgb 11.2 L, Hct 34.2 L, MCH 31.9 H, MPV 7.3 L, Monocytes # 0.6 H 08/09/20 06:14: BUN Less than 4 L, Creatinine 0.57 L Microbiology - Entire Visit 08/05/20 09:10 Venous blood - Right Arm Blood Culture - Preliminary NO GROWTH AT 48 HOURS 08/05/20 08:40 Venous blood - Right Arm Blood Culture - Preliminary NO GROWTH AT 48 HOURS 08/05/20 08:28 Urine voided Urine Culture - Final - Physical Exam Vitals: Vital Signs (12 hours) Temp Pulse Resp BP Pulse Ox 08/09/20 07:32 98.2 F 63 18 113/76 93 L 08/09/20 03:45 97.9 F 65 18 105/59 L 96 08/08/20 23:45 98.3 F 71 18 108/69 96 Weight Weight 180 lb Physical Exam: The patient was seen and examined on the day of discharge. Patient denies chest pain or shortness of breath. Vital signs are stable. S1 and S2 are heard. Lungs are clear to auscultation bilaterally. Plan - Discharge Medications Prescriptions: Ciprofloxacin [Cipro] 500 mg PO 0600,1999 #20 tab metroNIDAZOLE [Flagyl] 500 mg PO 0400,1200,1999 #30 tab Home Medications: Medication Instructions Recorded Confirmed Type Fluticasone Propionate [Flonase 1 spray EA NARE DAILY PRN 08/05/20 08/05/20 History Nasal Bernice] Ciprofloxacin [Cipro] 500 mg PO 0600,1999 #20 tab 08/09/20 Rx metroNIDAZOLE [Flagyl] 500 mg PO 0400,1200,1999 #30 tab 08/09/20 Rx Allergies: egg Allergy (Verified 08/05/20 19:58) No Known Drug Allergies Allergy (Verified 08/05/20 19:58) tomato Allergy (Verified 08/05/20 19:58) Yeast Allergy (Verified 08/05/20 19:58) - Follow up Plan Referrals: PROVIDER,NO PCP [Primary Care Provider] - 3 Days Disposition: HOME
[2020-08-09] MEDS: Acetaminophen 325 MG TAB PO PRN (11:36)
[2020-08-09 11:55] VITALS: BP 108/65; TEMP 98.1
--- NOTE | 2020-08-09 15:19 | EKG ---
Test Reason : Blood Pressure : / mmHG Vent. Rate : 067 BPM Atrial Rate : 067 BPM P-R Int : 136 ms QRS Dur : 070 ms QT Int : 388 ms P-R-T Axes : 013 012 007 degrees QTc Int : 409 ms Normal sinus rhythm Normal ECG No previous ECGs available Confirmed by SRI MARTINEZ, DR. Rooney ([id number]) on 08/09/2020 3:18:54 PM Referred By: MAGALY Confirmed By:DR. Nevin FIERRO MD
== END 2020-08-09 13:22 | disposition home or self-care (01) | DRG 872 ==
LOC: ERS 08:18 → T4-B 13:14
PROVIDERS: ADMIT Internal Medicine; ATTEND Internal Medicine
DX: A41.9 Sepsis, unspecified organism (principal); E87.1 Hypo-osmolality and hyponatremia; K57.32 Diverticulitis of large intestine without perforation or abscess without bleeding; E87.6 Hypokalemia; K59.00 Constipation, unspecified; E66.9 Obesity, unspecified; E83.39 Other disorders of phosphorus metabolism; Z20.828 Contact with and (suspected) exposure to other viral communicable diseases; F32.9 Major depressive disorder, single episode, unspecified; Z98.51 Tubal ligation status; Z68.32 Body mass index [BMI] 32.0-32.9, adult; Z91.012 Allergy to eggs; Z91.018 Allergy to other foods
CPT/HCPCS: 36415; 71045; 71275; 74177; 80048; 80053; 81003; 81015; 81025; 83605; 83690; 83735; 84100; 84484; 85025; 85379; 87040; 87086; 87635; 90471; 90662; 93005; 93010; 96365; 96375; G0008; J1650; J1940; J2270; J2405; J2543; J3490; Q9967; U0003

== ENCOUNTER 2020-08-10 08:46 | Emergency (ER) | payer SELFPAY ==
[2020-08-10 15:45] LABS: SARS-CoV-2 MS2 Positive; SARS-CoV-2 N Gene Negative; SARS-CoV-2 S Gene Negative; SARS-CoV-2 by NAA Not Detected (NotDetected); SARS-CoV-2 orf1ab Negative
== END 2020-08-10 09:37 | disposition home or self-care (01) ==
LOC: ERS 08:46
DX: R50.9 Fever, unspecified (principal); R43.8 Other disturbances of smell and taste; Z20.828 Contact with and (suspected) exposure to other viral communicable diseases
CPT/HCPCS: 87635; 99283; U0003

== ENCOUNTER 2020-08-11 11:21 | Emergency (ER) | payer SELFPAY ==
[2020-08-11 12:01] LABS: #Basophils 0.1 thou/uL (0.0-0.2); #Eosinphils 0.2 thou/uL (0.0-0.7); #Lymphocytes 1.1 thou/uL (1.20-3.40); #Monocytes 0.9 thou/uL (0.11-0.59); #Neutrophils 4.1 thou/uL (1.40-6.50); %Basophils 1.3 % (0.0-1.0); %Eosinophils 3.8 % (0.0-10.0); %Lymphocytes 16.4 % (21.0-51.0); %Monocytes 14.6 % (0.0-10.0); %Neutrophils 63.9 % (42.0-75.0); Hemoglobin 13.8 g/dL (12.0-16.0); Mean Corpuscular HGB CONC 31.3 g/dL (32.0-36.0); Mean Corpuscular Volume 95.9 fL (78.0-98.0); Mean Platelet Volume 6.8 fL (7.4-10.4); Platelet Count 435 thou/uL (130-400); RBC Distribution Width 11.8 % (11.5-14.5); Red Blood Cell (RBC) Count 4.61 mill/uL (4.20-5.40); White Blood Cell (WBC) Count 6.5 thou/uL (4.8-10.8)
--- NOTE | 2020-08-11 12:02 | RAD ---
EXAM: CHEST ONE VIEW HISTORY: Shortness of breath and chest pain. COMPARISON: 08/08/2012 FINDINGS: The cardiac silhouette and pulmonary vasculature are within normal limits. The lungs appear clear on today's examination. Previously seen right pleural effusion is not evident on this exam. No other interval change. IMPRESSION: No acute cardiopulmonary process.
[2020-08-11 12:26] LABS: ALT (SGPT) 25 U/L (8-55); AST (SGOT) 30 U/L (5-34); Albumin 3.7 g/dL (3.5-5.0); Alkaline Phosphatase 125 U/L (40-110); Anion Gap 14 mmol/L (10-20); BUN (Urea Nitrogen) 6 mg/dL (7.0-18.7); Bilirubin, Total 0.3 mg/dL (0.2-1.2); Calc. Creatinine Clearance 0 mL/min (70-130); Calcium 9.5 mg/dL (7.8-10.44); Carbon Dioxide 28 mmol/L (22-29); Chloride 101 mmol/L (98-107); Globulin 3.8 g/dL (2.4-3.5); Glucose 107 mg/dL (70-105); Potassium 3.8 mmol/L (3.5-5.1); Protein, Total 7.5 g/dL (6.0-8.3); Sodium 139 mmol/L (136-145)
[2020-08-11] MEDS ORDERED: Albuterol 200 PUFF (6.7GM INHALER) ONE (12:38)
[2020-08-11] MEDS ORDERED: Aspirin Chewable 81 MG TAB ONE (12:47)
[2020-08-11] MEDS ORDERED: Nitroglycerin 2% Ointment 1 INCH/1 GM Packet ONE (12:50)
--- NOTE | 2020-08-14 11:12 | EKG ---
Test Reason : Blood Pressure : / mmHG Vent. Rate : 083 BPM Atrial Rate : 083 BPM P-R Int : 138 ms QRS Dur : 078 ms QT Int : 378 ms P-R-T Axes : 022 002 021 degrees QTc Int : 444 ms Normal sinus rhythm Normal ECG Confirmed by MAXIMILIANO PONCE DO ([id number]), editor in chief PASHA PRASAD ([id number] on 08/14/2020 11:12:51 AM Referred By: Confirmed By:MAXIMILIANO PONCE DO
== END 2020-08-11 14:20 | disposition home or self-care (01) ==
LOC: ERS 11:21
DX: R07.89 Other chest pain (principal); F41.9 Anxiety disorder, unspecified; R06.02 Shortness of breath; F32.9 Major depressive disorder, single episode, unspecified
CPT/HCPCS: 71045; 80053; 83880; 84484; 85025; 93005; 94760

== ENCOUNTER 2021-08-24 09:39 | Emergency (ER) | payer SELFPAY ==
[2021-08-25 09:51] LABS: SARS-CoV-2 PCR by NAA Not Detected (NotDetected)
== END 2021-08-24 13:21 | disposition home or self-care (01) ==
LOC: ERS 09:39
DX: B34.9 Viral infection, unspecified (principal); Z20.822 Contact with and (suspected) exposure to COVID-19
CPT/HCPCS: 99283; U0003; U0005

== ENCOUNTER 2022-07-04 17:24 | Emergency (ER) | payer SELFPAY ==
[2022-07-04] MEDS ORDERED: Diazepam 5 MG TAB ONE (17:46)
[2022-07-04] MEDS ORDERED: Ketorolac Tromethamine 30 MG/ML VIAL ONE (17:46)
[2022-07-04] MEDS ORDERED: Dexamethasone 10 MG/ML VIAL ONE (17:46)
[2022-07-04 18:31] LABS: Pregnancy Test - Urine (BHCG) Negative (Negative); Pregu Control Background? CLEAR/WHITE (CLR/WHITE); Pregu Control Bar Appear? YES (CONTROL BAR); Specific Gravity 1.005 (1.002-1.036)
[2022-07-04] MEDS ORDERED: Ondansetron ODT 4 MG TAB ONE (20:00)
[2022-07-04] MEDS ORDERED: Morphine 4 MG/ML VIAL ONE (20:00)
== END 2022-07-04 21:10 | disposition home or self-care (01) ==
LOC: ERS 17:24
DX: M54.50 Low back pain, unspecified (principal)
CPT/HCPCS: 81025; 96372; 99283; J1100; J1885; J2270; Q0162

== ENCOUNTER 2023-01-29 12:56 | Outpatient (CLI) | payer BC | END 2023-01-29 12:57 | disposition home or self-care (01) | LOC: SCSCT 12:56 | PROVIDERS: ATTEND Allergy & Immunology | DX: J32.9 Chronic sinusitis, unspecified (principal); J34.89 Other specified disorders of nose and nasal sinuses ==